=== PATIENT | male | born 1960 | race Caucasian/White ===

== ENCOUNTER 2023-10-26 13:59 | Day surgery (SDC) | payer OTHER, SELFPAY ==
[2023-10-26] VITALS (10 sets, daily range): BP systolic 146–168; BP diastolic 68–107; PULSE 68–84; TEMP 36.3–36.8; O2SAT 96–98; BMI 31.9
[2023-10-26 14:23] LABS: INR 1.06; Partial Thromboplastin Time 30.8 sec (22.3-36.2); Prothrombin Time 11.2 sec (9.0-11.6)
[2023-10-26] MEDS: LACTATED RINGER'S SOLUTION 1,000 ML 50 ML IV (14:43)
[2023-10-26] MEDS: CEFAZOLIN SODIUM 2 GM/50 ML D5W PREMIX IV (15:28)
--- NOTE | 2023-10-26 16:15 | P.URON_ITS ---
Urology Surgery Operative Note Operative Note Procedure Date: 10/26/23 Time Out Performed: yes Pre-op Diagnosis: Left ureteral calculus Post-op Diagnosis: same as pre-op Procedures performed: 1. Cystoscopy. 2. Left rigid ureteral dilation. 3. Left ureteroscopy. 4. Stone basket extraction. 5. Placement of 6 [place] variable length left ureteral stent Anesthesia: General-LMA Primary Surgeon: Mango Amaya Complications: None none Estimated blood loss (mL): 3 Findings: Distal left ureteral stenosis. Specimens: Jagged stone from left ureter Drains: 6 [place] variable length left ureteral stent Indications for Procedures: This gentleman has a 3 to 4 mm left ureteral calculus which is causing pain and hydronephrosis. He is unable to pass it. He now presents for cystoscopy left ureteroscopy, stone manipulation and probable stent placement. He has signed an informed consent after risks were explained. Detailed description of Procedure: The patient was brought to the operating room and placed on the operating room table in the supine position. SCDs were placed on the lower extremities and turned on and functioning during the entire case. Timeout was done by all parties in the room. We all agreed upon the patient's identification and the planned procedures for this patient. Genn. anesthesia was then administered. The patient was then repositioned into the modified dorsal lithotomy position. All pressure points were satisfactorily padded. Genitalia were sterilely prepped and draped in usual fashion. I started by passing a 22 [place] Olympus cystoscope per urethra and into the bladder. Anterior urethra was normal. Prostatic urethra showed by lobar obstruction. Panendoscopy in the bladder revealed no evidence of any tumors or stones. While using fluoroscopy I was unable to identify a stone along the course of the left ureter. I then passed a Glidewire through the scope and into the stenotic left ureteral orifice. The wire went up to the kidney easily. There was an immediate E flux of cloudy debris coming down the ureter and into the bladder. I then used a 8 and 10 [place] rigid dilator to dilate the distal ureter. More debris came down after this. The cystoscope was then removed. I then passed a semirigid ureteroscope into the bladder and into the left ureter. There was a distal ureteral stenosis and then the jagged stone was noted just proximal to this in the distal third of the ureter. I used a nitinol basket and engaged the stone and extracted it down and out. It was sent for analysis. The cystoscope was backloaded over the wire and passed into the bladder. I then slid a 6 [place] variable length stent over the wire up to the kidney. The wire was removed and there were good curls in the kidney and in the bladder. The bladder was drained of its contents and the scope was then removed. [facility] in stable condition.
--- NOTE | 2023-10-26 16:15 | FL_ITS ---
[address] [address] Patient Name: ANNEMARIE WATT MRN: [id number] date: 1960 Sex: M Assigned Patient Location: [facility] Current Patient Location: [facility] Accession/Order Number: [id number] Exam Date: 10/26/2023 15:35 Report Date: 10/31/2023 10:12 At the request of: ELVIS ADAMES Procedure: FL fluoroscopy <1hr NON-READ EXAM: FL fluoroscopy <1hr NON-READ HISTORY: TECHNIQUE: FINDINGS: Please see Operative Report. Electronically authenticated by: RADIOLOGIST NO Date: 10/31/2023 10:12
[2023-10-26] MEDS: SOLIFENACIN SUCCINATE 10 MG TABLET PO (16:26)
== END 2023-10-26 17:20 | disposition home or self-care (01) ==
PROVIDERS: PCP Family Medicine; Visit Provider Urology
PROC: (CPT 910; principal; 2023-10-26 15:00)
DX: N13.2 Hydronephrosis with renal and ureteral calculous obstruction (principal); Q62.10 Congenital occlusion of ureter, unspecified; R10.9 Unspecified abdominal pain; C34.90 Malignant neoplasm of unspecified part of unspecified bronchus or lung; N40.1 Benign prostatic hyperplasia with lower urinary tract symptoms; R33.9 Retention of urine, unspecified; R35.0 Frequency of micturition; R35.1 Nocturia; R39.12 Poor urinary stream; Z87.891 Personal history of nicotine dependence; N28.1 Cyst of kidney, acquired; G47.33 Obstructive sleep apnea (adult) (pediatric); E03.9 Hypothyroidism, unspecified
CPT/HCPCS: 52332; 52341; 52352; 36415; 76000; 85610; 85730; J0690; J1100; J2250; J2405; J2704; J3010

== ENCOUNTER 2023-12-11 10:31 | Outpatient (OUT) | payer OTHER, SELFPAY ==
[2023-12-11 13:39] LABS: Calcium 8.8 mg/dL (8.5-10.1); Carbon Dioxide 25.3 mmol/L (21.0-32.0); Chloride 107 mmol/L (98-107); Estimated GFR (African America >60 (>=60 mL/min/1.73m^2); Estimated GFR (Non-African Ame 58 (>=60 mL/min/1.73m^2); Phosphorus 3.1 mg/dL (2.6-4.7); Sodium 141 mmol/L (136-145)
[2023-12-12 01:36] LABS: Creatinine Urine Random 280.62 mg/dL (20.00-300.00)
[2023-12-12 01:37] LABS: Calcium Urine Random 24.9 mg/dL (5.1-21.0); Sodium Urine Random 135 mmol/L (30-90)
[2023-12-12 06:52] LABS: Creatinine 24 Hour Urine 2244.96 mg/24 hr (1000.0-2000.00); Total Volume 24 Hour Urine 800 mL/24hr
[2023-12-12 06:53] LABS: Calcium 24 Hour Urine 199.2 mg/24hr (100.0-300.0); Sodium 24 Hour Urine 108 mmol/24h (40-220); Total Volume 24 Hour Urine 800 mL/24hr
[2023-12-12 10:10] LABS: PTH, Intact 23 pg/mL (15-65)
[2023-12-12 11:09] LABS: Phosphorus, Urine 121.3 mg/dL (Not Estab.); Phosphorus,Urine 24h 970 mg/24 hr (390-1425); Uric Acid, Urine 78.3 mg/dL (Not Estab.); Uric Acid,Urine 24hr 626.4 mg/24 hr (182.4-936.8)
[2023-12-13 07:11] LABS: Magnesium, U 11.1 mg/dL (Not Estab.); Magnesium,Urine 24hr 88.8 mg/24 hr (12.0-293.0)
[2023-12-13 14:10] LABS: Citric Acid, U, 24hr 553 mg/24 hr (320-1240); Citric Acid, Urine 691 mg/L (Undefined)
[2023-12-18 13:08] LABS: Oxalates, Urine 39 mg/L (Undefined); Oxalates, Urine 24hr 31 mg/24 hr (7-44)
== END 2023-12-11 10:32 | disposition home or self-care (01) ==
LOC: LAB 10:32
PROVIDERS: PCP Family Medicine; Visit Provider Urology
DX: N20.0 Calculus of kidney (principal)
CPT/HCPCS: 36415; 81050; 82310; 82340; 82374; 82435; 82507; 82565; 82570; 83735; 83945; 83970; 84100; 84105; 84295; 84300; 84520; 84550; 84560